=== PATIENT | female | born 1980 | race Two or more races ===

== ENCOUNTER 2025-03-15 23:52 | Emergency (ER) | payer MEDICAID, SELFPAY ==
[2025-03-15 23:53] VITALS: BP 140/91; PULSE 96; RESP 18; TEMP 36.7; O2SAT 100
[2025-03-15 23:55] VITALS: PULSE 101; RESP 20; O2SAT 100; BMI 23.9
--- NOTE | 2025-03-16 00:15 | PC.NURSE ---
no answer in lobby when called to see provider
--- NOTE | 2025-03-16 00:27 | PC.NURSE ---
no answer in lobby when called to see provider
--- NOTE | 2025-03-16 01:01 | PC.NURSE ---
no answer in lobby when called for room in ed
== END 2025-03-16 01:42 | disposition left against medical advice (07) ==
LOC: SERX 03-16 01:10
PROVIDERS: Emergency Provider Emergency Medicine
DX: Z53.21 Procedure and treatment not carried out due to patient leaving prior to being seen by health care provider (principal)
CPT/HCPCS: 99281